=== PATIENT | female | born 1965 | race African-American/Black ===

== ENCOUNTER 2016-11-21 12:24 | Emergency (ER) | payer SELFPAY ==
[~2016-11-21] VITALS: Ht 167.6 cm; Wt 88.0 kg
[~2016-11-21 12:24] MED LIST: DIFL150T PO; LORTA5 PO; METF-324 PO
[2016-11-21 12:27] VITALS: BP 143/82; PULSE 71; RESP 16; TEMP 98.8; O2SAT 99
[2016-11-21] MEDS ORDERED: HYDR-3533 PO (12:53)
[2016-11-21] MEDS ORDERED: VICT18IN SQ (12:53)
[2016-11-21] MEDS ORDERED: DIAZEPAM 5 MG TAB PO ONE (13:00)
[2016-11-21] MEDS ORDERED: IBUPROFEN 600 MG TAB PO ONE (13:00)
--- NOTE | 2016-11-21 14:06 | RADHPO ---
EXAM DATE/TIME: 11/21/2016 13:17 [place] COMPARISON: No previous studies available for comparison. INDICATIONS : Right arm pain; fall. MEDICAL HISTORY : None. SURGICAL HISTORY : None. ENCOUNTER: Initial ACUITY: 3 days PAIN SCORE: 10/10 LOCATION: Right middle upper arm. FINDINGS: Two view examination of the right humerus demonstrates no evidence of fracture or dislocation. Bony mineralization is normal. The soft tissue structures are intact. CONCLUSION: Negative exam. Keith Mercer MD on November 21, 2016 at 14:03 Board Certified Radiologist. This report was verified electronically.
--- NOTE | 2016-11-21 14:35 | PD ---
HPI Chief Complaint: Pain: Acute or Chronic Time Seen by Provider: 12:51 Travel History International Travel<30 days: No Contact w/Intl Traveler<30days: No Traveled to known affect area: No History of Present Illness HPI 51yo F with no significant PMH presents to the ED with c/o right arm pain for 3 weeks. 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 States pain is midhumerus where the patient fell on her and worse with movement. Denies any focal weakness, numbness, fever, chest pain, sob, n/v, abdominal pain, new trauma. PFSH Past Medical History Hx Anticoagulant Therapy: No Blood Disorders: No Cancer: No Cardiovascular Problems: No Diabetes: Yes Patient Takes Glucophage: No Gastrointestinal Disorders: No Genitourinary: No Herniated Disk: Yes Immune Disorder: No Implanted Vascular Access Dvce: Yes Musculoskeletal: No Neurologic: No Psychiatric: No Reproductive: No Respiratory: No Influenza Vaccination: No ?: Not : 5 Para: 3 : 2 Past Surgical History Body Medical Devices: x2 metal clips to right breast Section: Yes (X1) Gynecologic Surgery: Yes (ovarian cyst removed) Social History Alcohol Use: No Tobacco Use: No Substance Use: No Allergies-Medications (Allergen,Severity, Reaction): Coded Allergies: Erythromycin (Verified Allergy, Severe, HIVES, 11/21/16) Levaquin (Verified Allergy, Severe, HIVES, 11/21/16) Sulfa (Verified Allergy, Severe, HIVES, 11/21/16) Reported Meds & Prescriptions Reported Meds & Active Scripts Active Ibuprofen 600 Mg Tab 600 Mg PO Q8HR PRN Reported Lortab (Hydrocodone-Acetaminophen) 5-325 Mg Tab 1 Tab PO Q6H PRN Victoza Inj (Liraglutide Inj) 18 Mg/3 Ml Pen 0.6 Mg SQ DAILY Review of Systems Except as stated in HPI: all other systems reviewed are Neg Physical Exam Narrative GENERAL: 51yo F not in distress. SKIN: Focused skin assessment warm/dry. HEAD: Atraumatic. Normocephalic. EYES: Pupils equal and round. No scleral icterus. No injection or drainage. ENT: No nasal bleeding or discharge. Mucous membranes pink and moist. NECK: Trachea midline. No JVD. CARDIOVASCULAR: Regular rate and rhythm. No murmur appreciated. RESPIRATORY: No accessory muscle use. Clear to auscultation. Breath sounds equal bilaterally. GASTROINTESTINAL: Abdomen soft, non-tender, nondistended. No rebound tenderness or guarding. MUSCULOSKELETAL: RUE: +TTP right mid humerus. Sensation intact. Right elbow and shoulder has good range of motion. Distal pulses intact. NEUROLOGICAL: Awake and alert. No obvious cranial nerve deficits. Motor grossly within normal limits. Normal speech. PSYCHIATRIC: Appropriate mood and affect; insight and judgment normal. Data Data Last Documented VS Vital Signs Date Time Temp Pulse Resp B/P Pulse Ox O2 Delivery O2 Flow Rate FiO2 11/21/16 12:27 98.8 71 16 143/82 99 Orders Humerus (Min 2vws) (11/21/16 ) Ibuprofen (Motrin) (11/21/16 13:00) Diazepam (Valium) (11/21/16 13:00) [facility] Medical Decision Making Medical Screen Exam Complete: Yes Emergency Medical Condition: Yes Interpretation(s) Last Impressions Humerus X-Ray 11/21/16 0000 Signed Impressions: Service Date/Time: Monday, November 21, 2016 13:17 - CONCLUSION: Negative exam. Keith Mercer MD Differential Diagnosis Fracture vs. contusion vs. musculoskeletal pain Narrative Course 51yo F with right arm pain for 3 weeks, worst with movement. Impression is more musculoskeletal. Xray of right humerus showed negative exam. Pt given ibuprofen and valium in the ED. Pain has improved. Return precautions given. Pt instructed to follow up with orthopedic if pain persists. Diagnosis Primary Impression: Right arm pain Referrals: Remy Ortega MD Patient Instructions: General Instructions Departure Forms: Tests/Procedures, Work Release Additional Instructions: Please follow up with your PMD or possible orthopedic referral if pain does not improve. Return to the ED if symptoms worsen. Med/Other Pt SpecificInfo: Prescription(s) given Scripts Ibuprofen 600 Mg Aao253 Mg PO Q8HR PRN (PAIN) #20 TAB Ref 0 Prov:Marycarmen Fink DO 11/21/16 Disposition: 01 DISCHARGE HOME Condition: Stable Marycarmen Fink Nov 21, 2016 14:35
[2016-11-21] MEDS ORDERED: IBUP-232 PO (14:51)
[2016-11-21 15:11] VITALS: BP 140/86
== END 2016-11-21 15:32 | disposition home or self-care (01) ==
LOC: PHED 12:24
DX: M79.601 Pain in right arm (principal); E11.9 Type 2 diabetes mellitus without complications; X50.0XXA Overexertion from strenuous movement or load, initial encounter; Y93.F2 Activity, caregiving, lifting; Y92.9 Unspecified place or not applicable; Y99.0 Civilian activity done for income or pay
CPT/HCPCS: 73060; 99283